=== PATIENT | female | born 1940 | race Caucasian/White ===

== ENCOUNTER 2017-01-20 12:30 | Emergency (ER) | payer MEDICARE, OTHER ==
--- NOTE | 2017-01-20 13:08 | EDM.PDOC ---
ED HPI GENERAL MEDICAL PROBLEM - General Chief Complaint: Cardiovascular Problem Stated Complaint: POSS. A FIB Time Seen by Provider: 01/20/17 12:57 - History of Present Illness INITIAL COMMENTS - FREE TEXT/NARRATIVE: 76-year-old female presents emergency room generally just not feeling well. Patient denies any specific pain, however is been having frequent nausea vomiting and can't keep medications or much fluid or food down when she tries to eat she often throws up including when she takes her medications. Patient was recently diagnosed with atrial fibrillation was started on Eliquis. She has not developed any bleeding she has not developed any black or tarry stools no diarrhea. The patient gives a long history of dyspnea on exertion. She has not had significant swelling. She recently had evaluation done for this in the clinic in [place] she was referred here for a abdominal pelvic CT which was unrevealing. She has not really had much relief from the nausea and vomiting and keeping fluids and food down. She does have a history of reflux recently had her omeprazole changed to Protonix and has not appreciated much benefit from this. Patient has not had any chest pain but has had some chest pressure and dyspnea on exertion. Most the time the chest pressure is associated with activity. - Related Data Allergies Allergy/AdvReac Type Severity Reaction Status Date / Time Pyfnmak-Xap-Oeg Reductase Allergy Other Verified 01/20/17 12:46 Inhibitor Sulfa (Sulfonamide Allergy Rash Verified 01/20/17 12:46 Antibiotics) oxycodone HCl [From Percocet] AdvReac Anxiety Verified 01/20/17 12:46 Home Meds: Home Meds Cyanocobalamin (Vitamin B12) [Vitamin B12] 1,000 mcg PO DAILY 05/13/14 [History] Losartan [Cozaar] 50 mg PO DAILY 05/13/14 [History] Potassium Chloride 10 meq PO BID 05/13/14 [History] Allopurinol [Zyloprim] 300 mg PO DAILY 08/09/14 [History] Calcium Carbonate [Tums] 3 tab PO ASDIRECTED PRN 08/09/14 [History] Cholecalciferol (Vitamin D3) [Vitamin D3] 1 tab PO DAILY 08/09/14 [History] Docusate Sodium [Colace] 2 cap PO BID PRN 08/09/14 [History] Ibuprofen 3 tab PO Q6H PRN 08/09/14 [History] Magnesium Hydroxide [Milk of Magnesia] 30 ml PO Q8H PRN 08/09/14 [History] Multivitamin [Multi-Vitamin Daily] 1 tab PO DAILY 08/09/14 [History] diphenhydrAMINE [Benadryl] 1 tab PO DAILY PRN 08/09/14 [History] Apixaban [Eliquis] 5 mg PO BID 01/20/17 [History] Metoprolol Tartrate 50 mg PO BID 01/20/17 [History] Ondansetron [Zofran ODT] 4 mg PO Q6H PRN #15 tab.dis 01/20/17 [Rx] Pantoprazole Sodium 40 mg PO DAILY 01/20/17 [History] Sucralfate [Carafate] 1 gm PO QIDACANDBED #60 tablet 01/20/17 [Rx] Past Medical History HEENT History: Reports: Impaired Vision Cardiovascular History: Reports: Afib, Hypertension Social & Family History - Tobacco Use Smoking Status *Q: Never Smoker Second Hand Smoke Exposure: No - Caffeine Use Caffeine Use: Reports: Coffee - Alcohol Use Days Per Week of Alcohol Use: 0 Number of Drinks Per Day: 0 Total Drinks Per Week: 0 - Recreational Drug Use Recreational Drug Use: No Drug Use in Last 12 Months: No - Living Situation & Occupation Occupation: Retired ED ROS GENERAL - Review of Systems Review Of Systems: See Below Constitutional: Reports: Malaise, Weakness, Night Sweats, Diaphoresis. Denies: No Symptoms HEENT: Reports: No Symptoms Respiratory: Reports: Shortness of Breath (Worsened with activity) Cardiovascular: Reports: Dyspnea on Exertion. Denies: Chest Pain, Edema, Palpitations Endocrine: Reports: No Symptoms GI/Abdominal: Reports: Nausea, Vomiting, Other (She has reflux but is unsure if this is causing her symptoms). Denies: Abdominal Pain : Reports: No Symptoms Neurological: Reports: No Symptoms ED EXAM, GENERAL - Physical Exam Exam: See Below Exam Limited By: No Limitations General Appearance: Alert, No Apparent Distress Ears: Normal External Exam, Normal Canal, Hearing Grossly Normal, Normal TMs Nose: Normal Inspection, Normal Mucosa, No Blood Throat/Mouth: Normal Inspection, Normal Lips, Normal Gums, Normal Oropharynx, Normal Voice, No Airway Compromise Head: Atraumatic, Normocephalic Neck: Normal Inspection, Supple, Non-Tender, Full Range of Motion. No: Lymphadenopathy (L), Lymphadenopathy (R) Respiratory/Chest: No Respiratory Distress, Lungs Clear, Normal Breath Sounds Cardiovascular: No Edema, No Murmur, Irregularly Irregular, Other (Tachycardia approximately 100-110) GI/Abdominal: Normal Bowel Sounds, Soft, Other (Patient has significant epigastric pain with palpation no rebound or guarding or distention noted) Back Exam: Normal Inspection. No: CVA Tenderness (L), CVA Tenderness (R) Extremities: Normal Inspection, No Pedal Edema Neurological: Alert, Oriented, Normal Cognition Course - Vital Signs Last Recorded V/S: Last Vital Signs Temp 36.6 C 01/20/17 12:41 Pulse 122 H 01/20/17 12:41 Resp 18 01/20/17 12:41 BP 187/79 H 01/20/17 12:41 Pulse Ox 97 01/20/17 12:41 - Orders/Labs/Meds Orders: Active Orders 24 hr Category Date Time Status EKG Documentation Completion [RC] STAT Care 01/20/17 13:09 Active Labs: Laboratory Tests 01/20/17 01/20/17 01/20/17 Range/Units 13:51 13:51 13:51 WBC 8.44 (3.98-10.04) K/mm3 RBC 4.35 (3.98-5.22) M/mm3 Hgb 13.0 (11.2-15.7) gm/L Hct 40.3 (34.1-44.9) % MCV 92.6 (79.4-94.8) fl MCH 29.9 (25.6-32.2) pg MCHC 32.3 (32.2-35.5) g/dl RDW Std Deviation 52.9 H (36.4-46.3) fL Plt Count 155 L (182-369) K/mm3 MPV 12.1 (9.4-12.3) fl Neutrophils % (Manual) 74 H (40-60) % Band Neutrophils % 0 (0-10) % Lymphocytes % (Manual) 20 (20-40) % Atypical Lymphs % 0 % Monocytes % (Manual) 5 (2-10) % Eosinophils % (Manual) 1 (0.7-5.8) % Basophils % (Manual) 0 L (0.1-1.2) Platelet Estimate Adequate RBC Morph Comment Normal PT 12.2 (8.0-13.0) SECONDS INR 1.11 APTT 30 (22-36) SECONDS Sodium 140 (136-145) mEq/L Potassium 4.4 (3.5-5.1) mEq/L Chloride 107 (98-107) mEq/L Carbon Dioxide 24 (21-32) mEq/L Anion Gap 13.4 (5-15) BUN 17 (7-18) mg/dL Creatinine 1.1 H (0.55-1.02) mg/dL Est Cr Clr Drug Dosing 34.95 mL/min Estimated GFR (MDRD) 48 (>60) mL/min BUN/Creatinine Ratio 15.5 (14-18) Glucose 151 H (83-115) mg/dL Calcium 9.3 (8.5-10.1) mg/dL Total Bilirubin 0.6 (0.2-1.0) mg/dL AST 13 L (15-37) U/L ALT 22 (14-59) U/L Alkaline Phosphatase 97 (46-116) U/L Troponin I < 0.017 (0.00-0.056) ng/mL B-Natriuretic Peptide (0-100) pg/mL Total Protein 6.6 (6.4-8.2) g/dl Albumin 3.2 L (3.4-5.0) g/dl Globulin 3.4 gm/dL Albumin/Globulin Ratio 0.9 L (1-2) Urine Color (Yellow) Urine Appearance (Clear) Urine pH (5.0-8.0) Ur Specific [place] (1.005-1.030) Urine Protein (Negative) Urine Glucose (UA) (Negative) Urine Ketones (Negative) Urine Occult Blood (Negative) Urine Nitrite (Negative) Urine Bilirubin (Negative) Urine Urobilinogen (0.2-1.0) Ur Leukocyte Esterase (Negative) Urine RBC (0-5) /hpf Urine WBC (0-5) /hpf Ur Epithelial Cells (0-5) /hpf Urine Bacteria (FEW) /hpf Urine Mucus (FEW) /hpf 01/20/17 01/20/17 Range/Units 13:51 15:21 WBC (3.98-10.04) K/mm3 RBC (3.98-5.22) M/mm3 Hgb (11.2-15.7) gm/L Hct (34.1-44.9) % MCV (79.4-94.8) fl MCH (25.6-32.2) pg MCHC (32.2-35.5) g/dl RDW Std Deviation (36.4-46.3) fL Plt Count (182-369) K/mm3 MPV (9.4-12.3) fl Neutrophils % (Manual) (40-60) % Band Neutrophils % (0-10) % Lymphocytes % (Manual) (20-40) % Atypical Lymphs % % Monocytes % (Manual) (2-10) % Eosinophils % (Manual) (0.7-5.8) % Basophils % (Manual) (0.1-1.2) Platelet Estimate RBC Morph Comment PT (8.0-13.0) SECONDS INR APTT (22-36) SECONDS Sodium (136-145) mEq/L Potassium (3.5-5.1) mEq/L Chloride (98-107) mEq/L Carbon Dioxide (21-32) mEq/L Anion Gap (5-15) BUN (7-18) mg/dL Creatinine (0.55-1.02) mg/dL Est Cr Clr Drug Dosing mL/min Estimated GFR (MDRD) (>60) mL/min BUN/Creatinine Ratio (14-18) Glucose (83-115) mg/dL Calcium (8.5-10.1) mg/dL Total Bilirubin (0.2-1.0) mg/dL AST (15-37) U/L ALT (14-59) U/L Alkaline Phosphatase (46-116) U/L Troponin I (0.00-0.056) ng/mL B-Natriuretic Peptide 474 H (0-100) pg/mL Total Protein (6.4-8.2) g/dl Albumin (3.4-5.0) g/dl Globulin gm/dL Albumin/Globulin Ratio (1-2) Urine Color Yellow (Yellow) Urine Appearance Clear (Clear) Urine pH 5.5 (5.0-8.0) Ur Specific [place] 1.025 (1.005-1.030) Urine Protein 2+ H (Negative) Urine Glucose (UA) Negative (Negative) Urine Ketones Negative (Negative) Urine Occult Blood Negative (Negative) Urine Nitrite Negative (Negative) Urine Bilirubin Negative (Negative) Urine Urobilinogen 0.2 (0.2-1.0) Ur Leukocyte Esterase Negative (Negative) Urine RBC 0-5 (0-5) /hpf Urine WBC 0-5 (0-5) /hpf Ur Epithelial Cells 0-5 (0-5) /hpf Urine Bacteria Moderate H (FEW) /hpf Urine Mucus Moderate H (FEW) /hpf Meds: Medications Discontinued Medications Generic Name Dose Route Start Last Admin Trade Name Freq PRN Reason Stop Dose Admin Al Hydroxide/Mg Hydroxide 30 0 ml 01/20/17 13:10 01/20/17 13:22 ml/ Lidocaine HCl 15 ml PO 01/20/17 13:11 45 ml ONETIME ONE Administration Ondansetron HCl 4 mg 01/20/17 15:01 01/20/17 15:06 Zofran Odt PO 01/20/17 15:02 4 mg ONETIME ONE Administration Sucralfate 1 gm 01/20/17 15:00 01/20/17 15:06 Carafate PO 01/20/17 15:01 1 gm ONETIME ONE Administration - Re-Assessments/Exams Free Text/Narrative Re-Assessment/Exam: 01/20/17 14:55 Patient has done okay in the department she had some improvement with the GI cocktail albeit she wasn't really complaining of pain however on exam she had significant epigastric discomfort. At this point she has a little bit of nausea but not bad with her history of reflux we will try given her dose of Carafate and see if she can keep fluids down. Still waiting on urinalysis labs are otherwise unrevealing chest x-ray unrevealing EKG was nondiagnostic she had some mild nonspecific nondiagnostic ST depression in the anterior septal leads. Looking through her history with a two-week history of a diagnosis of A. fib she was put on Eliquis she has not developed any black or tarry stools. Prior to this the patient was demonstrating what sounds like significant dyspnea with exertion or exercise tolerance is much less than what he used to be. She was mildly tachycardic upon arrival here now her pulse is in the 90s mostly. The concern of cardiac ischemia is certainly a possibility he can be a cause every A fib as well as some potential failure symptoms. 01/20/17 18:02 Patient did well after Carafate Zofran she was able to eat a meal take her medications and his develop no nausea or vomiting. The patient has cardiology follow up coming up in the next week and a half. At this point will not adjust any medications however with her mildly elevated BNP changing her Metroprolol tartrate to metoprolol succinate or Coreg might improve her survivability with some heart failure. With her heart failure she really should have an echocardiogram in the near future. And she needs a thorough evaluation for potential ischemic heart disease. At this point will not adjust her heart medications as she may have significant improvement in her pulse rate by keeping her medications down. And this is better done in a situation where consistency of follow-up is ensured, in other words, her regular providers. The patient will be discharged with Carafate in case she has some atrophic gastritis contributing to her gastroesophageal reflux disease. And will give her some Zofran to use as needed. Departure - Departure Time of Disposition: 18:04 Disposition: Home, Self-Care 01 Clinical Impression: Gastroesophageal reflux disease, Nausea & vomiting, Atrial fibrillation, Heart failure Prescriptions: Ondansetron [Zofran ODT] 4 mg PO Q6H PRN #15 tab.dis PRN Reason: Nausea/Vomiting Sucralfate [Carafate] 1 gm PO QIDACANDBED #60 tablet Forms: ED Department Discharge Additional Instructions: Return to the emergency room with any questions problems or worsening symptoms. Follow-up at the [facility] at the end of this week for recheck. 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 You been started on Carafate this is a medication to help with your stomach as I am concerned he may have with a call atrophic gastritis making year gastroesophageal reflux disease worse and making it difficult for you to keep your food and medications down. This medication should be taken 4 times a day usually before each meal and at bedtime. Your other medications are best taken at least 1 hour prior to taking the Carafate and at least 2 hours afterwards. You've also been given Zofran for nausea and vomiting. Use this as needed for nausea and vomiting. - My Orders Last 24 Hours: My Active Orders 01/20/17 13:09 EKG Documentation Completion [RC] STAT - Assessment/Plan Last 24 Hours: My Active Orders 01/20/17 13:09 EKG Documentation Completion [RC] STAT
[2017-01-20] MEDS ORDERED: Alum Hydrox/Mag Hydrox/Simeth 30 ML, Lidocaine 2% 15 ML PO ONE ×2 (13:10)
--- NOTE | 2017-01-20 14:38 | CR ---
Chest: Portable view of the chest was obtained. Comparison: No previous chest x-ray. Heart is enlarged. Linear atelectasis or scarring is seen within the left mid to lower lung. Lungs otherwise are clear. Bony structures are grossly intact. Impression: 1. Mild cardiomegaly. 2. Slight scarring or atelectasis within the left mid to lower lung. 3. Nothing acute is otherwise seen on portable chest x-ray. Diagnostic code #2
[2017-01-20] MEDS ORDERED: Sucralfate Suspension 1 GM/10 ML Cup PO ONE (15:00)
[2017-01-20] MEDS ORDERED: Ondansetron 4 MG Tab.DIS PO ONE (15:01)
[2017-01-20 18:41] VITALS: BP 117/90
== END 2017-01-20 18:20 | disposition home or self-care (01) ==
LOC: JD.ED 12:30
DX: I11.0 Hypertensive heart disease with heart failure (principal); I50.9 Heart failure, unspecified; I48.91 Unspecified atrial fibrillation; K21.9 Gastro-esophageal reflux disease without esophagitis; Z88.2 Allergy status to sulfonamides; Z88.5 Allergy status to narcotic agent; Z79.899 Other long term (current) drug therapy
CPT/HCPCS: 36415; 71010; 80053; 81001; 83880; 84484; 85025; 85610; 85730; 93005; 99285; A9270; 99284